=== PATIENT | male | born 1965 | race Caucasian/White ===

== ENCOUNTER → 2017-12-22 12:33 | Outpatient (CLI) | payer OTHER, SELFPAY ==
[2017-12-22 13:21] LABS: Amphetamine Urine VISTA NEGATIVE (<1000 ng/mL); Barbiturate Urine VISTA NEGATIVE (< 200 ng/mL); Benzodiazepine Urine VISTA NEGATIVE (< 200 ng/mL); Cocaine Urine VISTA NEGATIVE (< 300 ng/mL); Ecstacy Urine VISTA NEGATIVE (< 500 ng/mL); Methadone Urine VISTA NEGATIVE (< 300 ng/mL); PCP Urine VISTA NEGATIVE (< 25 ng/mL); THC Urine VISTA NEGATIVE (< 50 ng/mL); Vista UDS pH Range 8
== END ==
PROVIDERS: Visit Provider Anesthesiology Pain Medicine
DX: F11.20 Opioid dependence, uncomplicated (principal)
CPT/HCPCS: 80307

== ENCOUNTER → 2018-09-06 11:40 | Outpatient (CLI) | payer OTHER, SELFPAY ==
[2018-09-06 12:50] LABS: Amphetamine Urine VISTA NEGATIVE (<1000 ng/mL); Barbiturate Urine VISTA NEGATIVE (< 200 ng/mL); Benzodiazepine Urine VISTA NEGATIVE (< 200 ng/mL); Cocaine Urine VISTA NEGATIVE (< 300 ng/mL); Ecstacy Urine VISTA NEGATIVE (< 500 ng/mL); Methadone Urine VISTA NEGATIVE (< 300 ng/mL); PCP Urine VISTA NEGATIVE (< 25 ng/mL); THC Urine VISTA NEGATIVE (< 50 ng/mL); Vista UDS pH Range 6
--- OUTSIDE RECORDS SUMMARY | 2018-11-11 07:48 | XMS RPT_ITS | Summary of Care ---
:1965 Author Organization [facility]'s [facility] Address [address] [place] [address] Phone Care Team Providers Name Role Phone Tomi [facility] Primary Care Provider Reason for Referral MRI/CAT Scan (Routine) Status Reason Specialty Diagnoses / Procedures Referred By Contact Referred To Contact Canceled Diagnoses Unilateral recurrent inguinal hernia without obstruction or gangrene Tomi Tony, Procedures CT ABDOMEN/PELVIS WITH CONTRAST CHG CT SCAN,ABDOMENT AND PELVIS,W CONTRAST [facility] [address] [place] [address] Reason for Visit Reason Comments Groin Pain Encounter Details Date Type Department Care Team Description 03/15/2018 Office Visit [facility] Tomi Tony, Unilateral recurrent inguinal hernia without obstruction or gangrene (Primary Dx); 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 Disp. Refills Start Date End Date Status albuterol 108 (90 take 1 puff by Active Base) MCG/ACT Aero inhalation Soln every 6 hours as needed for Wheezing.. levetiracetam 500 MG take 500 mg by Active Tab mouth 2 times daily.. cyclobenzaprine 10 take 10 mg by Active MG Tab mouth 3 times daily as needed for Muscle spasms.. hydroCODone-acetamin take 1 tablet Active ophen 5-325 MG Tab by mouth every 4 hours as needed (max 2 tabs daily).. fenofibrate 54 MG take 54 mg by Active Tab mouth daily.. escitalopram 10 MG take 10 mg by Active Tab mouth daily.. levetiracetam 250 MG 11/30/2016 Active Tab meloxicam 7.5 MG Tab 11/30/2016 Active oxyCODONE-acetaminop 12/29/2016 Active hen 5-325 MG Tab levothyroxine 125 take 1 tablet 90 tablet 1 03/03/2017 Active MCG Tab by mouth daily.. levothyroxine 125 take 1 tablet 30 tablet 0 03/03/2017 Active MCG Tab by mouth daily.. LEVOTHYROXINE 125 take 1 tablet 30 tablet 11 04/19/2017 Active MCG Tab by mouth once daily rOPINIRole 1 MG One po 1-3 hrs 30 tablet 1 05/24/2017 Active TabIndications: prior to sleep Periodic limb daily movement sleep disorder, Restless leg syndrome azathioprine 50 MG take 50 mg by Discontinued Tab mouth daily.. 8 Two tabs clonazePAM take 1 mg by Discontinued (KLONOPIN) 1 MG Tab mouth at 8 bedtime.. 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 Social History Tobacco Use Types Packs/Day Years Used Date Current Every Day Smoker Cigarettes 0.5 Quit: 11/12/2016 Smokeless Tobacco: Never Used Alcohol Use Drinks/Week oz/Week Comments No Sex Assigned at Date Recorded Not on file as of this encounter Last Filed Vital Signs Vital Sign Reading Time Taken Blood Pressure 138/92 03/15/2018 8:42 AM EDT Pulse 97 03/15/2018 8:42 AM EDT Temperature 37.4 ??C (99.4 ??F) 03/15/2018 8:42 AM EDT Respiratory Rate - - Oxygen Saturation 97% 03/15/2018 8:42 AM EDT Inhaled Oxygen Concentration - - Weight 90.3 kg (199 lb) 03/15/2018 8:42 AM EDT Height 175.3 cm (5' 9) 03/15/2018 8:42 AM EDT Body Mass Index 29.39 03/15/2018 8:42 AM EDT in this encounter Progress Notes Tomi Tony, [employer] 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 New Patient Visit Ambrocio Vega [id number] 1965 03/15/2018 Chief Complaint Patient presents with ??? Groin Pain History of Present Illness: Ambrocio Vega is a 52 y.o. male presenting for an evaluation to get established here in the practice as a new pt. He was previously seen by Tab Zavala NP. Acute: Reports that he is having right groin pain. He denies any known injury. Onset 2 months ago. Has been happening more frequently. Happens a few times a week with some movements but he has not been able to narrow that down at all. In 2010 he did have a hernia repair on the right side. When he had the hernia in the past he did not have pain like he does now. Does not have any abd pain. No nausea or vomiting. No fever or chills. Has been eating and drinking well. Denies any testicular pain or selling. No diff urinating. History: Past Medical History: Diagnosis Date ??? COPD (chronic obstructive pulmonary disease) ??? Diabetes mellitus ??? Encephalopathy ??? Essential hypertension, benign ??? Mirella's disease Past Surgical History: Procedure Laterality Date ??? HERNIA REPAIR 2010 ??? LUNG SURGERY Right 2005 ??? ACL RECONSTRUCTION Right 2001 ??? ARM SURGERY Right 1991 Family History Problem Relation Age of Onset ??? Lung Cancer Mother ??? Lung Cancer Father ??? Heart Disease - Other Maternal Grandmother ??? Lung Cancer Maternal Grandmother Social History Social History ??? Marital status: Spouse name: N/A ??? Number of children: N/A ??? Years of education: N/A Social History Main Topics ??? Smoking status: Current Every Day Smoker Packs/day: 0.50 Types: Cigarettes Last attempt to quit: 11/12/2016 ??? Smokeless tobacco: Never Used ??? Alcohol use No ??? Drug use: Yes Types: Marijuana ??? Sexual activity: Not on file Other Topics Concern ??? Not on file Social History Narrative ??? No narrative on file History Smoking Status ??? Current Every Day Smoker ??? Packs/day: 0.50 ??? Types: Cigarettes ??? Last attempt to quit: 11/12/2016 Smokeless Tobacco ??? Never Used History Alcohol Use No History Drug Use ??? Types: Marijuana Allergies: Lidocaine Home Medications: Current Outpatient Prescriptions: ??? albuterol 108 (90 Base) MCG/ACT Aero Soln, take 1 puff by inhalation every 6 hours as needed for Wheezing.., Disp: , Rfl: ??? azathioprine 50 MG Tab, take 50 mg by mouth daily.. Two tabs, Disp: , Rfl: ??? clonazePAM (KLONOPIN) 1 MG Tab, take 1 mg by mouth at bedtime.. 1.5 tabs, Disp: , Rfl: ??? cyclobenzaprine 10 MG Tab, take 10 mg by mouth 3 times daily as needed for Muscle spasms.. , Disp: , Rfl: ??? levothyroxine 125 MCG Tab, take 1 tablet by mouth daily.., Disp: 90 tablet, Rfl: 1 ??? oxyCODONE-acetaminophen 5-325 MG Tab, , Disp: , Rfl: ??? pantoprazole 20 MG Tab , , Disp: , Rfl: ??? escitalopram 10 MG Tab, take 10 mg by mouth daily.., Disp: , Rfl: ??? fenofibrate 54 MG Tab, take 54 mg by mouth daily.., Disp: , Rfl: ??? hydroCODone-acetaminophen 5-325 MG Tab, take 1 tablet by mouth every 4 hours as needed (max 2 tabs daily).., Disp: , Rfl: ??? levetiracetam 250 MG Tab, , Disp: , Rfl: ??? levetiracetam 500 MG Tab, take 500 mg by mouth 2 times daily.., Disp: , Rfl: ??? levothyroxine 125 MCG Tab, take 1 tablet by mouth daily.. (Patient not taking: Reported on 03/15/2018 ), Disp: 30 tablet, Rfl: 0 ??? LEVOTHYROXINE 125 MCG Tab, take 1 tablet by mouth once daily (Patient not taking: Reported on 03/15/2018), Disp: 30 tablet, Rfl: 11 ??? meloxicam 7.5 MG Tab, , Disp: , Rfl: ??? rOPINIRole 1 MG Tab, One po 1-3 hrs prior to sleep daily (Patient not taking: Reported on 03/15/2018 ), Disp: 30 tablet, Rfl: 1 ROS: Review of Systems Constitutional: Negative for fever, chills, weight loss and malaise/fatigue. Skin: Negative for rash, itching and dry skin. HENT: Negative for congestion, sore throat and rhinorrhea. Cardiovascular: Negative for chest pain, dyspnea on exertion and palpitations. Respiratory: Negative for cough. Is not experiencing shortness of breath or wheezing. Gastrointestinal: Positive for abdominal pain (inguinal to the right ). Negative for nausea, vomiting, diarrhea and melena. Genitourinary: Negative for bladder incontinence, urgency, frequency, hematuria, flank pain, testicular pain, testicular mass and vaginal discharge. Musculoskeletal: Negative for back pain, joint pain and myalgias. Neurological: Negative for dizziness, tingling, tremors, focal weakness and headaches. Psychiatric: Negative for depression. The patient is not nervous/anxious and does not have insomnia. Allergy/Immunology: Negative for environmental allergies and urticaria. Physical Examination: Vital Signs: Blood pressure (!) 138/92, pulse 97, temperature 99.4 ??F (37.4 ??C), temperature source Temporal, height 1.753 m (5' 9), weight 90.3 kg (199 lb), SpO2 97 %. Physical Exam Constitutional: He is oriented to person, place, and time and well-developed, well-nourished, and inno distress. Vital signs are normal. Neck: Trachea normal, normal range of motion, full passive range of motion without pain and phonation normal. Neck supple. Cardiovascular: Normal rate, regular rhythm, normal heart sounds, intact distal pulses and normal pulses. Pulmonary/Chest: Effort normal and breath sounds normal. No accessory muscle usage. No respiratory distress. He has no decreased breath sounds. He has no wheezes. Abdominal: Soft. Normal appearance and bowel sounds are normal. There is tenderness (right inguinal). There is no CVA tenderness. Lymphadenopathy: Head (right side): No submental and no submandibular adenopathy present. Head (left side): No submental and no submandibular adenopathy present. He has no cervical adenopathy. Neurological: He is alert and oriented to person, place, and time. He has normal motor skills. Gait normal. GCS score is 15. Laboratory and Additional Data Reviewed: Results for orders placed or performed in visit on 11/30/17 CBC, EDIF, PLATELET Result Value Ref Range WBC (WHITE BLOOD COUNT) 7.5 3.6 - 11.0 /cmm RBC 4.97 4.0 - 6.1 /cmm HEMOGLOBIN (HGB) 13.9 (L) 14.0 - 18.0 G/DL HEMATOCRIT (HCT) 41.6 (L) 42.0 - 52.0 % MEAN CELL VOLUME 83.7 80.0 - 100.0 FL Mean Cell HGB 28.0 26.0 - 35.0 PG MEAN CELL HGB CONCENTRATION 33.4 27.0 - 37.0 G/DL RBC DISTRIBUTION 16.3 (H) 11.5 - 14.5 % PLATELET COUNT 234 130.0 - 400.0 /cmm MEAN PLATELET VOLUME 7.5 7.4 - 11.0 FL DIFFERENTIAL TYPE AUTO DIFF % NEUTROPHILS 54.1 37.0 - 75.0 % LYMPHOCYTE 27.9 20.0 - 55.0 % MONOCYTE 12.3 (H) 0.0 - 10.0 % EOSINOPHIL 4.6 0.0 - 11.0 % BASOPHIL 1.1 0.0 - 2.0 % Absolute Neutrophil Count 4.1 1.0 - 7.0 x10 LYMPHOCYTES, ABSOLUTE 2.10 X10 MONOCYTES, ABSOLUTE 0.9 X10 ABSOLUTE EOSINOPHIL COUNT 0.30 X10 ABSOLUTE BASOPHIL COUNT 0.1 X10 COMPREHENSIVE METABOLIC PANEL Result Value Ref Range GLUCOSE 91 70 - 100 MG/DL BUN 17 7 - 20 MG/DL CREATININE SERUM 0.8 0.7 - 1.2 MG/DL SODIUM 145 137 - 145 MMOL/L POTASSIUM 4.1 3.5 - 5.1 MMOL/L CHLORIDE 106 98 - 107 MMOL/L CALCIUM 9.2 8.4 - 10.2 MG/DL PROTEIN, TOTAL 7.4 6.3 - 8.2 GM/DL ALBUMIN 4.7 3.5 - 5.0 G/dl BILIRUBIN, TOTAL 0.8 0.2 - 1.3 MG/DL AST 21 17 - 59 IU/L ALKALINE PHOSPHATASE 59 38 - 126 IU/L CARBON DIOXIDE (CO2) 28 22 - 30 MMOL/L A/G Ratio 1.7 1.3 - 2.2 RATIO ALT 27 21 - 72 IU/L ESTIMATED GFR, NON AMER >60 ml/min/1.73sq.m ESTIMATED GFR, >60 ml/min/1.73sq.m GFR COMMENT Average GFR for 50-59 years old = 93. T4 Result Value Ref Range T4 6.0 4.5 - 12.0 ug/dL TSH Result Value Ref Range TSH 4.080 0.46 - 4.68 uIU/ML T4 FREE Result Value Ref Range FREE T4 0.74 (L) 0.78 - 2.19 NG/DL No images are attached to the encounter. Assessment and Plan: Ambrocio Vega is a 52 y.o. male that presented for evaluation to get established. He has an acute problem of right lower inguinal pain. Hx of right inguinal hernia surg about 7+ years ago. On exam there is pain to the right inguinal area with suspected hernia felt. Given hx will order Ct for further evaluation. Will follow up after CT imaging. Ambrocio was seen today for groin pain. Diagnoses and all orders for this visit: Unilateral recurrent inguinal hernia without obstruction or gangrene - CT ABDOMEN/PELVIS WITH CONTRAST; Future Chronic obstructive pulmonary disease, unspecified COPD type Autoimmune encephalomyelitis Encephalopathy Tomi Tony, KASSIDY-MARYin this encounter Plan of Treatment Scheduled Tests Name Priority Associated Diagnoses Order Schedule CT ABDOMEN/PELVIS WITH Routine Unilateral recurrent Expected: 03/15/2018, CONTRAST inguinal hernia without Expires: 03/15/2019 obstruction or gangrene Health Maintenance Due Date Last Done Comments HIV SCREENING DISCUSSION 1980 TETANUS 1985 TDAP (ADULT) 1986 LIPID SCREENING 2007 COLON CANCER SCREENING DISCUSSION 2017 PROSTATE CANCER SCREENING DISCUSSION 2017 INFLUENZA VACCINE (#1) 2018 TSH 11/30/2018 11/30/2017 as of this encounter Visit Diagnoses Diagnosis Unilateral recurrent inguinal hernia without obstruction or gangrene - Primary Inguinal hernia without mention of obstruction or gangrene, recurrent unilateral or unspecified Chronic obstructive pulmonary disease, unspecified COPD type Autoimmune encephalomyelitis Other causes of encephalitis and encephalomyelitis Encephalopathy Encephalopathy, unspecified
--- OUTSIDE RECORDS SUMMARY | 2018-11-11 07:48 | XMS RPT_ITS | Summary of Care ---
:1965 Author Organization [facility] Address [address] 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 azathioprine 50 MG Take 1 tablet 90 tablet 3 06/01/2018 Active Tab tablet by mouth daily. clonazePAM 0.5 MG Take 1 tablet 90 tablet 0 09/06/2018 Active Tab daily at 9 tabletIndications: bedtime. Insomnia, unspecified type clonazePAM Take 1 tablet 90 tablet 0 06/11/2018 Discontinued (KLONOPIN) 1 MG daily at 9 TabIndications: bedtime. Insomnia, unspecified type clonazePAM 0.5 MG Take 1 tablet 90 tablet 0 06/11/2018 Discontinued Tab daily at 9 tabletIndications: bedtime. Insomnia, unspecified type as of this encounter Active Problems Problem [...] Not on file as of this encounter Plan of Treatment Health Maintenance Due Date Last Done Comments HIV SCREENING DISCUSSION 1980 TETANUS 1985 TDAP (ADULT) 1986 LIPID SCREENING 2007 COLON CANCER SCREENING DISCUSSION 2017 PROSTATE CANCER SCREENING DISCUSSION 2017 INFLUENZA VACCINE (#1) 2018 TSH 11/30/2018 11/30/2017 as of this encounter Visit Diagnoses Diagnosis Insomnia, unspecified type
--- OUTSIDE RECORDS SUMMARY | 2018-11-11 07:49 | XMS RPT_ITS ---
:1965 Author Organization [facility] Care Team Providers Name Role Phone SYSTEM, PROVIDER NOT IN Referring Unavailable BRIANNA GARCIA Attending Unavailable SOREN VALENCIA Attending Unavailable SELF, SELF Referring Unavailable SOREN VALENCIA Attending Unavailable SOREN VALENCIA Referring Unavailable SOREN VALENCIA Attending Unavailable SOREN VALENCIA Referring Unavailable SOREN VALENCIA Attending Unavailable SOREN VALENCIA Referring Unavailable Basali, Felix Attending Unavailable Basali, Felix Referring Unavailable KEVIN HIGUERA Primary Care Unavailable Basali, Felix Attending Unavailable Basali, Felix Referring Unavailable KEVIN HIGUERA Primary Care Unavailable PROBLEMS PROBLEMS DATE TYPE CONDITION / CODE ATTENDING STATUS SOURCE 09/06/2018 Unknown F11.20 - Opioid Basali, Ayman 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, Community uncomplicated / Hospital F11.20(ICD-10) Repository 05/04/2018 Admitting Unspecified SOREN VALENCIA IActive Diagnosis abdominal hernia [place] without obstruction Repository or gangrene / K46.9(ICD-10) 03/27/2018 Admitting Right lower SOREN VALENCIA IActive Diagnosis quadrant pain / [place] R10.31(ICD-10) Repository 03/15/2018 Admitting Groin Pain / SOREN VALENCIA IActive Diagnosis 191118() L [place] Repository PROCEDURES PROCEDURES No Procedure Records FoundRESULTS RESULTS URINE DRUG SCREEN Collected: 09/06/2018 Status: F Source: [facility] (VISTA) 11:46 AM PENDING SALE TO [facility] REPOSITORY Order Comment: List of Drugs Taken or Suspected? UNK TYPE CODE TESTS RESULT OUT OF RANGE REFERENCE UNITS LAB L505.0075 TO BE Normal CONFIRMED Result Comment: CONFIRMATORY TESTING FOR ALL POSITIVE URINE DRUG SCREEN RESULTS WILL ONLY BE SENT OUT UPON PHYSICIAN ORDER. VISTA Urine Drug Screen methods provide only preliminary analytical test results. A more specific alternate chemical method must be used in order to obtain a confirmed analytical result. Gas chromatography/mass spectrometery (GC/MS) is the preferred confirmatory method. Clinical consideration and professional judgement should be applied to any drug of abuse test result, particularly when preliminary positive results are used. URINE TCA TESTING MUST BE ORDERED SEPARATELY. USE TEST MNEMONIC: [facility] LAB L505.5005 VISTA UDS PH 6 Normal LAB L505.5015 <1000 ng/mL AMPHETAMINES Normal NEGATIVE LAB L505.5025 < 200 ng/mL BARBITIURATES Normal NEGATIVE LAB L505.5035 < 200 ng/mL BENZODIAZIPINE Normal NEGATIVE LAB L505.5045 < 300 ng/mL COCAINE Normal NEGATIVE LAB L505.5055 < 500 ng/mL ECSTACY Normal NEGATIVE LAB L505.5065 < 300 ng/mL METHADONE Normal NEGATIVE LAB L505.5075 < 300 ng/mL OPIATES Normal NEGATIVE LAB L505.5085 < 25 ng/mL PCP Normal NEGATIVE LAB L505.5095 < 50 ng/mL THC Normal NEGATIVE Performed By: #### L505.5000 #### [facility] [address] [place], [address] MISCELLANEOUS LAB Collected: 09/06/2018 Status: F Source: [place] PROCEDURE 11:46 AM [facility] REPOSITORY Order Comment: Test(s) Ordered: [id number] URINE DRUG SCREEN TYPE CODE TESTS RESULT OUT OF RANGE REFERENCE UNITS LAB L801.1541 Normal [facility] LAB TEST Result Comment: [id number] 6+OXYCODONE-BUND (ng/mL) DRUG RESULT SCREEN CUTOFF ____ Amphetamines,Urine Negative ng/mL 1000 Amphetamine test includes Amphetamine and Methamphetamine. Barbiturates Negative ng/mL 200 Benzodiazepines Negative ng/mL 200 Cannabinoid Negative ng/mL 20 Cocaine (Metab) Negative ng/mL 300 Opiates Negative ng/mL 300 Opiates test includes Codeine, Morphine, Hydromorphone, Hydrocodone. Oxycodone/Oxymorphone,Urine Positive ng/mL 300 Test includes Oxydodone and Oxymorphone. Oxycodone Positive Oxycodone GC/MS 2104 ng/mL 300 Oxymorphone Negative 300 TESTING PERFORMED AT [facility]. ORIGINAL REPORT ON FILE IN LAB CONTAINS ADDITIONAL TEST SITE INFORMATION. Performed By: #### L801.1541 #### [facility] [address] [place], [address] CT PELVIS WITH Observed: 05/04/2018 Status: F Source: [facility] CONTRAST 8:27 AM [place] REPOSITORY EXAM: CT PELVIS WITH CONTRAST CLINICAL STATEMENT: 52-year-old male with right inguinal pain for 4 months. Abdominal hernia without obstruction and without gangrene, recurrence not specified, unspecified hernia type. No known malignancy. COMPARISON: CT abdomen and pelvis with IV contrast 01/03/2015; CT pelvis with IV contrast 09/30/2011. TECHNIQUE: CT of the pelvis was performed following the administration of 75 mL Omnipaque 350. Ingested enteric contrast partially opacifies the bowel. Coronal and sagittal reformatted images were acquired. Dose reduction techniques were achieved by using automated exposure control and/or adjustment of mA and/or kV according to patient size and/or use of iterative reconstruction technique. FINDINGS: Redemonstrated are postsurgical changes of right inguinal hernia repair. Chronic appearance of presumed hernia plug at this site (for example series 4, image 44). This has been stable dating back to the 09/30/2011 exam. No evidence of new/recurrent right inguinal hernia. No left inguinal hernia. No other abdominal wall defect on this study. No right inguinal inflammatory changes. No evidence of bowel obstruction. Appendix is normal. Enteric contrast reaches the rectum. Nonspecific suggested segmental wall thickening involving the rectum versus underdistention (series 4, image 32). Clinical correlation is recommended. If indicated, this could be further assessed with colonoscopy. No pelvic lymphadenopathy. Visualized abdominal aorta and iliac arteries are normal in caliber. No free fluid, fluid collection, or extraluminal gas. Visualized portions of the lower poles of the kidneys are unremarkable. Urinary bladder is moderately well distended and otherwise unremarkable. Prostate gland is present. Seminal vesicles are symmetric. No aggressive osseous lesion. Mild degenerative changes of the lower lumbar spine. IMPRESSION: 1. Postsurgical changes of right inguinal plug repair. No evidence of new or recurrent hernia. No right inguinal inflammatory changes. 2. Short segment of apparent wall thickening versus underdistention involving the rectum (series 4, image 32). Clinical correlation as warranted. If indicated, this could be further assessed with colonoscopy to exclude neoplastic process. 3. No pelvic lymphadenopathy. BMP FASTING Collected: 05/01/2018 Status: F Source: [facility] 3:45 PM [place] ([place] REPOSITORY TYPE CODE TESTS RESULT OUT OF REFERENCE UNITS RANGE LAB GLF 70-100 MG/DL GLUCOSE 91 FASTING Result Comment: NORMAL <100 mg/dL PREDIABETES 101-126 mg/dL DIABETES 126 mg/dL or higher LAB BUN 7-20 MG/DL BLOOD UREA 13 NITROGEN LAB CRET 0.7-1.2 MG/DL CREATININE SERUM 0.8 LAB NA 137-145 MMOL/L SODIUM 141 LAB K 3.5-5.1 MMOL/L POTASSIUM 4.4 LAB CL 98-107 MMOL/L CHLORIDE 105 LAB CO2 22-30 MMOL/L CO2 29 LAB AGAP 8-16 MMOL/L ANION GAP 7 Low LAB CA 8.4-10.2 MG/DL CALCIUM 9.2 LAB GFR ml/min/1.73 sq.m EST. GFR,Non >60 LAB GFRB ml/min/1.73 sq.m EST. GFR, >60 [place] LAB GFRCOM GFR Information Average GFR for 50-59 years old = 93. Result Comment: Chronic Kidney disease, GFR = <60. Kidney failure, GFR = <15. The GFR estimate is not adjusted for extreme body surface area or acute process, nor has it been validated for women or ethnic groups other than and . Testing performed at [place], [place] [address] Performed By: #### BMPF #### Testing performed at [address] [place] [address] US SCROTUM AND Observed: 03/27/2018 Status: F Source: [facility] TESTICLES WITH DOPPLER 1:56 PM [place] REPOSITORY PROCEDURE: SCROTAL ULTRASOUND HISTORY: 52-year-old male with right inguinal pain. Right inguinal hernia suspected. TECHNIQUE: Ultrasound of the scrotum was performed. COMPARISON: CT abdomen and pelvis with IV contrast 01/03/2015. FINDINGS: MEASUREMENTS: Right testis: 3.9 x 2.9 x 2.2 cm (Length by AP by Width). Left testis: 3.8 x 3.0 x 2.0 cm (Length by AP by Width). TESTES: The testes are normal in size. The testes both demonstrate heterogeneous echogenicity. More focal irregular hypoechogenicity within the central right testis measures 0.9 x 1.2 x 1.1 cm and is without internal vascularity on color interrogation. Similarly appearing irregular focus of hypoechogenicity within the left testis measures 1.3 x 1.1 x 1.0 cm and also is without internal vascularity on color interrogation. Findings are nonspecific and may relate to the sequela of prior infection/inflammation. Infiltrative neoplastic processes are considered less likely, but cannot be entirely excluded. Symmetric arterial flow is present in both testes on color flow and spectral Doppler evaluation.. EPIDIDYMIDES: The epididymides are not enlarged. No hypervascularity on color interrogation. OTHER: There is no hydrocele or varicocele. Assessment of the right and left groins demonstrate no convincing sonographic evidence of hernia. If there is persistent clinical concern for hernia, further assessment with CT may be considered. IMPRESSION: 1. No acute scrotal sonographic findings. Specifically, negative for testicular torsion and acute epididymoorchitis. 2. Indeterminate, irregular, heterogeneous, avascular hypoechogenicity involving bilateral testes. Findings do not appear particularly masslike and may reflect the sequela of remote infection/inflammation. Infiltrative bilateral neoplastic processes are not entirely excluded. If indicated, testes could be further assessed with contrast-enhanced scrotal MRI. At a minimum, followup scrotal sonography in 3-6 months is recommended to assess for stability. 3. No convincing sonographic evidence of inguinal hernia. If there is persistent clinical concern, further assessment with CT may be of benefit. URINE DRUG SCREEN Collected: 12/22/2017 Status: F Source: [facility] ([facility]IST[facility]) 12:45 PM [facility] REPOSITORY Order Comment: List of Drugs Taken or Suspected? UNK TYPE CODE TESTS RESULT OUT OF RANGE REFERENCE UNITS LAB L505.0075 TO BE Normal CONFIRMED Result Comment: CONFIRMATORY TESTING FOR ALL POSITIVE URINE DRUG SCREEN RESULTS WILL ONLY BE SENT OUT UPON PHYSICIAN ORDER. VISTA Urine Drug Screen methods provide only preliminary analytical test results. A more specific alternate chemical method must be used in order to obtain a confirmed analytical result. Gas chromatography/mass spectrometery (GC/MS) is the preferred confirmatory method. Clinical consideration and professional judgement should be applied to any drug of abuse test result, particularly when preliminary positive results are used. URINE TCA TESTING MUST BE ORDERED SEPARATELY. USE TEST MNEMONIC: [facility] LAB L505.5005 VISTA UDS PH 8 Normal LAB L505.5015 <1000 ng/mL AMPHETAMINES Normal NEGATIVE LAB L505.5025 < 200 ng/mL BARBITIURATES Normal NEGATIVE LAB L505.5035 < 200 ng/mL BENZODIAZIPINE Normal NEGATIVE LAB L505.5045 < 300 ng/mL COCAINE Normal NEGATIVE LAB L505.5055 < 500 ng/mL ECSTACY Normal NEGATIVE LAB L505.5065 < 300 ng/mL METHADONE Normal NEGATIVE LAB L505.5075 < 300 High ng/mL OPIATES POSITIVE LAB L505.5085 < 25 ng/mL PCP Normal NEGATIVE LAB L505.5095 < 50 ng/mL THC Normal NEGATIVE Performed By: #### L505.5000 #### [facility] [place], [address] MISCELLANEOUS LAB Collected: 12/22/2017 Status: F Source: [facility] PROCEDURE 12:45 PM [facility] REPOSITORY Order Comment: Test(s) Ordered: URINE TOXICOLOGY [id number] RUN LOWEST TEST TYPE CODE TESTS RESULT OUT OF RANGE REFERENCE UNITS LAB L801.1541 Normal [facility] LAB TEST Result Comment: TEST RESULT UNITS REF INTERVAL [id number] 6+Oxycodone-Bund Amphetamines, Urine Negative ng/mL Xofdys=4026 Amphetamine test includes Amphetamine and Methamphetamine. Barbiturate Negative ng/mL Qqdorq=925 Benzodiazepines Negative ng/mL Smtpnn=899 Cannabinoids Negative ng/mL Cutoff=20 Cocaine (Metabolite) Negative ng/mL Ilrusw=665 Opiates Negative ng/mL Parmyd=539 Opiate test includes Codeine, Morphine, Hydromorphone, Hydrocodone. Oxycodone/Oxymorph Positive Shbkxh=947 Test includes Oxycodone and Oxymorphone Oxycodone Positive Oxycodone (GC/MS) 9610 ng/mL Nqwtxg=610 Oxymorphone Negative Auvdrh=326 TESTING PERFORMED AT [facility]. ORIGINAL REPORT ON FILE IN LAB CONTAINS ADDITIONAL TEST SITE INFORMATION. Performed By: #### L801.1541 #### [facility] [address] [place] [address]. [place], [place], [id number] [facility] PH[facility] Collected: 11/30/2017 Status: F Source: [facility] 1:23 PM [place] ([place] RE[place] TYPE CODE TESTS RESULT OUT OF REFERENCE UNITS RANGE LAB [facility] BRIANNA GARCIA [facility] [phone] Result Comment: Testing performed at [place] [address] Performed By: #### PHY, T42 #### [place] [address] FREE T4 Collected: 11/30/2017 Status: F Source: [facility] 1:23 PM [place] REPOSITORY TYPE CODE TESTS RESULT OUT OF RANGE REFERENCE UNITS LAB T42 0.78-2.19 NG/DL Low FREE T4 0.74 Result Comment: Testing performed at [place] [address] Performed By: #### PHY, T42 #### Testing performed at [place] [id number] [facility] Collected: 11/30/2017 Status: F Source: [facility] 1:18 PM [place] REPOS[place] TYPE CODE TESTS RESULT OUT OF REFERENCE UNITS RANGE LAB [facility] BRIANNA GARCIA [phone] Result Comment: Testing performed at [place] [address] Performed By: #### PHY, ACBC, CMPF, TSH2 #### [place] [address] #### LT4 #### Testing performed at [facility] [address] [place] [address] [place] [address] CBC Collected: 11/30/2017 Status: F Source: [facility] 1:18 PM [place] REPOSITORY TYPE CODE TESTS RESULT OUT OF REFERENCE UNITS RANGE LAB WBC 3.6-11.0 /cmm WBC COUNT 7.5 LAB RBC 4.0-6.1 /cmm RBC COUNT 4.97 LAB HGB 14.0-18.0 G/DL Low HEMOGLOBIN 13.9 LAB HCT 42.0-52.0 % Low HEMATOCRIT 41.6 LAB MCV 80.0-100.0 FL MCV 83.7 LAB MCH 26.0-35.0 PG MCH 28.0 LAB MCHC 27.0-37.0 G/DL MCHC 33.4 LAB RDW 11.5-14.5 % RDW High 16.3 LAB PLTC 130.0-400.0 /cmm PLATELET COUNT 234 LAB MPV 7.4-11.0 FL MPV 7.5 LAB DTYPE % DTYPE AUTO DIFF LAB NEUT 37.0-75.0 % NEUTROPHIL 54.1 LAB LYMP 20.0-55.0 % LYMPHOCYTE 27.9 LAB AOMONO 0.0-10.0 % MONOCYTE High 12.3 LAB EOS 0.0-11.0 % EOSINOPHIL 4.6 LAB BASO 0.0-2.0 % BASOPHIL 1.1 LAB ANC 1.0-7.0 x10 ABSOLUTE NEUTROPHIL COUNT 4.1 LAB ALYM X10 ABSOLUTE LYMPHOCYTE 2.10 LAB AMONO X10 ABSOLUTE MONOCYTE 0.9 LAB AEO X10 ABSOLUTE EOS 0.30 LAB ABAS X10 ABSOLUTE BAS 0.1 Result Comment: Testing performed at [place] [address] Performed By: #### PHY, ACBC, CMPF, TSH2 #### [place] [address] #### LT4 #### Testing performed at [facility] [address] [address] [place] [address] CMP FASTING Collected: 11/30/2017 Status: F Source: [facility] 1:18 PM [place] ([place] REPOSITORY TYPE CODE TESTS RESULT OUT OF REFERENCE UNITS RANGE LAB GLF 70-100 MG/DL GLUCOSE 91 FASTING Result Comment: NORMAL <100 mg/dL PREDIABETES 101-126 mg/dL DIABETES 126 mg/dL or higher LAB BUN 7-20 MG/DL BLOOD UREA 17 NITROGEN LAB CRET 0.7-1.2 MG/DL CREATININE SERUM 0.8 LAB NA 137-145 MMOL/L SODIUM 145 LAB K 3.5-5.1 MMOL/L POTASSIUM 4.1 LAB CL 98-107 MMOL/L CHLORIDE 106 LAB CA 8.4-10.2 MG/DL CALCIUM 9.2 LAB TP 6.3-8.2 GM/DL TOTAL PROTEIN 7.4 LAB ALB 3.5-5.0 G/dl ALBUMIN 4.7 LAB TBIL 0.2-1.3 MG/DL BILIRUBIN TOTAL 0.8 LAB AST 17-59 IU/L AST 21 LAB ALKP 38-126 IU/L ALK 59 PHOSPHATASE LAB CO2 22-30 MMOL/L CO2 28 LAB AG 1.3-2.2 RATIO A:G RATIO 1.7 LAB ALT 21-72 IU/L ALT 27 LAB GFR ml/min/1.73s q.m EST. GFR,Non >60 LAB GFRB ml/min/1.73s q.m EST. GFR, >60 [place] [facility] GFRCOM GFR Information Average GFR for 50-59 years old = 93. Result Comment: Chronic Kidney disease, GFR = <60. Kidney failure, GFR = <15. The GFR estimate is not adjusted for extreme body surface area or acute process, nor has it been validated for women or ethnic groups other than and . Testing performed at [place] [address] Performed By: #### PHY, ACBC, CMPF, TSH2 #### [place] [address] #### LT4 #### Testing performed at [facility] [address] [address] [place] [address] TSH Collected: 11/30/2017 Status: F Source: [facility] 1:18 PM [place] ([place] REPOSITORY TYPE CODE TESTS RESULT OUT OF RANGE REFERENCE UNITS LAB TSH2 0.46-4.68 uIU/ML TSH 4.080 Result Comment: Testing performed at [place] [address] Performed By: #### PHY, ACBC, CMPF, TSH2 #### [place] [address] #### LT4 #### Testing performed at [facility] [address] [place], [place] [address] [place] [address] THYROXINE (T4) Collected: 11/30/2017 Status: F [facility] 1:18 PM [place] REPOS[place]ORY TYPE CODE TESTS RESULT OUT OF REFERENCE UNITS RANGE LAB XTHY2 4.5-12.0 ug/dL THYROXINE (T4) 6.0 Result Comment: PERFORMED AT [facility] Performed By: #### PHY, ACBC, CMPF, TSH2 #### [place] [address] #### LT4 #### Testing performed at [facility] [address] [place], [place] [address] [place] [address] ALLERGIES ALLERGIES No Allergies Records FoundENCOUNTERS ENCOUNTERS ADMIT/DISCHARGE ACCOUNT NUMBER ADMITTING ENCOUNTER LOCATION SOURCE CLASS 09/06/2018 [id number] [facility] ding:LAB Repository 05/04/2018 [id number] [facility] [place] [address] ([place]) Repository 05/01/2018 [id number] [facility] [place] [address] ([place] Repository 03/27/2018 [id number] [facility] [place], [place] [address] [facility] ([place] Repository 03/15/2018 [id number] [facility] [place] [address] ([place] Rep[place] 12/22/2017 [id number] Ambulatory [facility] ding:LAB Repository 11/30/2017 [id number] [facility] [address] [place] [address] ([place] Rep[place] PAYERS PAYERS ENCOUNTER GUARANTOR PAYER SUBSCRIBER SOURCE 09/06/2018 DERICK VEGA Primary Insurance:[facility] [id number] [facility] SILVIADOB: [place], [place] Number: [id number] [address]Phb: [phone] [id number] Repository [phone] () Date:9827-06-98[address], [place] [address]FB: CHECK WEBSITE 09/06/2018 Secondary NOT GIVENUNK [place] Insurance:SELF PAY [facility] Number: Effective Repository Date:2018-09-06 12/22/2017 DERICK VEGA Primary [place] [facility] [id number] Insurance:MEDICAL ADKINSDOB: [facility] [id number] [address]Nhf: [phone]) Number: Repository [phone] () [id number] Date:6992-93-18[address], [place] [address]FR: 12/22/2017 Secondary NOT GIVENUNK [place] Insurance:SELF PAY [facility] Number: Effective Repository Date:2017-12-22
== END ==
PROVIDERS: Referring Provider Anesthesiology Pain Medicine; Visit Provider Anesthesiology Pain Medicine
DX: F11.20 Opioid dependence, uncomplicated (principal)
CPT/HCPCS: 80307

== ENCOUNTER → 2019-05-29 16:27 | Outpatient (CLI) | payer OTHER, SELFPAY ==
[2019-05-29 17:28] LABS: Amphetamine Urine VISTA NEGATIVE (<1000 ng/mL); Barbiturate Urine VISTA NEGATIVE (< 200 ng/mL); Benzodiazepine Urine VISTA NEGATIVE (< 200 ng/mL); Cocaine Urine VISTA NEGATIVE (< 300 ng/mL); Ecstacy Urine VISTA NEGATIVE (< 500 ng/mL); Methadone Urine VISTA NEGATIVE (< 300 ng/mL); PCP Urine VISTA NEGATIVE (< 25 ng/mL); THC Urine VISTA NEGATIVE (< 50 ng/mL); Vista UDS pH Range 8
== END ==
LOC: LAB 16:29
PROVIDERS: Referring Provider Anesthesiology Pain Medicine; Visit Provider Anesthesiology Pain Medicine
DX: F11.20 Opioid dependence, uncomplicated (principal)
CPT/HCPCS: 80307